=== PATIENT | female | born 1980 | race Asian ===

== ENCOUNTER 2016-09-16 23:54 | Emergency (ER) | payer OTHER ==
[~2016-09-16] VITALS: Ht 167.6 cm; Wt 52.2 kg
[2016-09-17] MEDS ORDERED: DiphenhydrAMINE 50mg/ml Inj IM ONE (01:15)
[2016-09-17] MEDS ORDERED: LORazepam Inj 2mg/ml 1ml IM ONE (01:15)
[2016-09-17] MEDS ORDERED: Haloperidol 5mg/ml Inj IM ONE (01:15)
[2016-09-17 02:00] VITALS: BP 105/70
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
[2016-09-17 04:58] VITALS: BP 90/58
[2016-09-17 07:52] VITALS: BP 99/64
[2016-09-17 07:58] VITALS: BP 99/64
== END 2016-09-17 07:59 | disposition home or self-care (01) ==
LOC: EDBD 23:54 → EMR 09-17 00:38
DX: F10.129 Alcohol abuse with intoxication, unspecified (principal)
CPT/HCPCS: 96372; 99284; J1200; J1630